=== PATIENT | male | born 1945 | race Caucasian/White ===

== ENCOUNTER → 2022-07-26 15:33 | Outpatient (BNVA) | payer MEDICARE, BC, SELFPAY | PROVIDERS: Family Provider Nurse Practitioner; PCP Nurse Practitioner Family; Visit Provider Nurse Practitioner Family | DX: N39.0 Urinary tract infection, site not specified (principal); N40.0 Benign prostatic hyperplasia without lower urinary tract symptoms | CPT/HCPCS: 81000 ==

== ENCOUNTER 2022-11-10 12:49 | Emergency (ER) | payer MEDICARE, SELFPAY ==
[2022-11-10] VITALS (48 sets, daily range): BP systolic 111–164; BP diastolic 53–69; PULSE 63–78; RESP 14–29; TEMP 36.5–36.9; O2SAT 91–98; BMI 28.2
--- NOTE | 2022-11-10 12:56 | ECG_ITS ---
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 Measurements Intervals [place] Rate: 77 P: 81 WV: 201 QRS: -51 QRSD: 121 T: 52 QT: 369 QTc: 419 Interpretive Statements SINUS RHYTHM WITH FREQUENT VENTRICULAR PREMATURE COMPLEXES LEFT AXIS DEVIATION [QRS AXIS < -30] MODERATE INTRAVENTRICULAR CONDUCTION DELAY [110+ ms QRS DURATION] No previous ECG available for comparison Electronically Signed On 11-10-2022 13:06:39 MACHINE OPERATOR by Venu Saavedra M.D. [id number]
--- NOTE | 2022-11-10 15:59 | XRR_ITS ---
PROCEDURE INFORMATION: Exam: XR Chest Exam date and time: 11/10/2022 4:16 PM Age: 77 years old Clinical indication: Other: Bradycardia; Additional info: Bradycardia, dizzy, abnormal ekg TECHNIQUE: Imaging protocol: Radiologic exam of the chest. Views: 1 view. COMPARISON: No relevant prior studies available. FINDINGS: Lungs: Unremarkable. No consolidation. Pleural spaces: Unremarkable. No pleural effusion. No pneumothorax. Heart/Mediastinum: Unremarkable. No cardiomegaly. Bones/joints: Unremarkable. XR/XR chest 1V portable [id number] IMPRESSION: No acute findings.
--- NOTE | 2022-11-10 16:39 | ED_ITS ---
HPI - Dizziness General: Chief Complaint: Dizziness Stated Complaint: Abnormal EKG Time Seen by Provider: 11/10/22 15:33 History of Present Illness: HPI Narrative: This 77-year-old male was sent from his primary care provider's office for evaluation of bradycardia and dizziness that started earlier today. There is associated weakness. Patient's heart rate was found to be in the 30s. He denies chest pain, shortness of breath, fever or any other pertinent symptoms. Associated symptoms: Denies chest pain, chills or headache(s) Review of Systems Const: Denies: chills, body aches or change in appetite Eyes: Denies: change in vision or eye discharge ENMT: Denies: throat pain, dental pain or nasal discharge Card: Reports: lightheadedness and other (Slow heart rate); Denies: chest pain : Denies: dysuria Musc: Denies: neck pain or back pain Neuro: Denies: headache(s) or weakness in extremities Psych: Denies: depression Raúl/Lymph: Denies: easy bruising All/Imm: Denies: urticaria, tongue swelling or facial swelling PFSH ED PFSH: Medical History BPH (benign prostatic hyperplasia) COVID-19 vaccine series completed Diabetes Essential hypertension Mixed hyperlipidemia Social History Smoking and tobacco status: never smoked Physical Exam Const: COMMON NORMALS: no acute distress, patient oriented x3, no limitations and alert HENMT: COMMON NORMALS: normocephalic HEAD & SCALP: normocephalic Eye: COMMON NORMALS: EOMs intact bilaterally Neck/C-Spine: COMMON NORMALS: full ROM and supple Chest: COMMONS NORMALS: normal inspection of the chest Resp: COMMON NORMALS: normal respiratory effort, No retractions, No use of accessory muscles and clear to auscultation bilaterally AUSCULTATION: clear to auscultation bilaterally Cardio: COMMON NORMALS: No murmurs present (Cardio) OTHER: Bradycardia, irregular rhythm, no murmur. GI: COMMON NORMALS: Normal to inspection, nondistended, normoactive bowel sounds present and non-tender : COMMON NORMALS: Yes no CVA tenderness BLADDER/KIDNEY EXAM: Yes no CVA tenderness Back/Pelvis: COMMON NORMALS: no CVA tenderness and no thoracic nor lumbar tenderness Extremity: GENERAL: Yes normal exam except as noted Neuro: COMMON NORMALS: patient oriented x3 and no focal motor deficits SENSORIUM/ORIENTATION: Yes alert Psych: COMMON NORMALS: mental status grossly normal and cooperative Course Vital Signs: Vital signs: Vital Signs Temperature 97.7 F 11/10/22 14:34 Pulse Rate 75 11/10/22 19:00 Respiratory Rate 19 H 11/10/22 19:00 Blood Pressure 140/58 11/10/22 19:00 Pulse Oximetry 95 11/10/22 19:00 Oxygen Delivery Me thod 11/10/22 14:34 MDM - Dizziness Medical Decision Making Medical decision making: Patient presents to the ED ER to be evaluated for low heart rate that is associated with dizziness. Patient notes that at baseline, he generally has heart rate in the 50s but on this occasion, his heart rate was found to drop to the upper 30s. He was dizzy earlier, that is why he went to his primary care physician's office who in turn advised him to come to the ER. While in the ER, his heart rate spontaneously improved and was up to the 70s and 80s. I discussed extensively with Dr. Montez who noted that if patient is asymptomatic and at his baseline, he can be discharged home with the plan to get an outpatient Holter monitor after which she will be happy to follow-up with him in the office. I discussed this with patient and daughter who verbalized understanding and agree with the plan. Lab Data 11/10/22 16:56 11/10/22 16:56 Radiology Impressions Chest X-Ray 11/10/22 15:59 IMPRESSION: No acute findings. Laboratory Results WBC 7.0 10^3/uL (4.0-10.0) 11/10/22 16:56 RBC 5.04 10^6/uL (4.1-5.3) 11/10/22 16:56 Hgb 14.4 g/dL (11.7-16.6) 11/10/22 16:56 Hct 44.2 % (42.0-52.0) 11/10/22 16:56 MCV 87.7 fl (80-94) 11/10/22 16:56 MCH 28.6 pg (28.0-34.0) 11/10/22 16:56 MCHC 32.6 g/dL (30.0-36.0) 11/10/22 16:56 RDW 13.8 % (12.1-15.1) 11/10/22 16:56 Plt Count 311 10^3/cmm (130-400) 11/10/22 16:56 MPV 10.0 fL (7.4-10.4) 11/10/22 16:56 Neut % (Auto) 62.3 % 11/10/22 16:56 Lymph % (Auto) 23.8 % 11/10/22 16:56 Barry % (Auto) 12.2 % 11/10/22 16:56 Eos % (Auto) 0.7 % 11/10/22 16:56 Baso % (Auto) 0.6 % 11/10/22 16:56 Neut # (Auto) 4.35 10^3/uL (1.8-7.7) 11/10/22 16:56 Lymph # (Auto) 1.7 10^3/uL (0.8-4.8) 11/10/22 16:56 Barry # (Auto) 0.9 10^3/uL (0.2-0.9) 11/10/22 16:56 Eos # (Auto) 0.1 10^3/uL (0.0-0.8) 11/10/22 16:56 Baso # (Auto) 0.0 10^3/uL (0.0-0.1) 11/10/22 16:56 Nucleated RBC % (auto) 0 % 11/10/22 16:56 Nucleated RBCs # 0.0 /100WBC 11/10/22 16:56 Sodium 140 mmol/L (136-145) 11/10/22 16:56 Potassium 5.0 mmol/L (3.5-5.1) 11/10/22 16:56 Chloride 102 mmol/L (98-107) 11/10/22 16:56 Carbon Dioxide 27 mmol/L (22-29) 11/10/22 16:56 Anion Gap 16.0 (5-19) 11/10/22 16:56 BUN 32 mg/dL (8-23) H 11/10/22 16:56 Creatinine 2.2 mg/dL (0.7-1.2) H 11/10/22 16:56 GFR Calculation Not Reportable 11/10/22 16:56 Glucose 163 mg/dL (65-115) H 11/10/22 16:56 Calculated Osmolality 300 mOsm/kg (285-295) H 11/10/22 16:56 Calcium 10.2 mg/dL (8.5-10.5) 11/10/22 16:56 Total Bilirubin 0.4 mg/dL (0.15-1.2) 11/10/22 16:56 AST 16 U/L (0-40) 11/10/22 16:56 ALT 16 U/L (0-41) 11/10/22 16:56 Alkaline Phosphatase 41 U/L (40-130) 11/10/22 16:56 Troponin T Gen 5 ng/L 25 ng/L (0-15) H 11/10/22 16:56 NT-Pro-B Natriuret Pep 1128 pg/mL (0-450) H 11/10/22 16:56 Total Protein 6.9 g/dL (6.6-8.7) 11/10/22 16:56 Albumin 4.3 g/dL (3.5-5.2) 11/10/22 16:56 Globulin 2.6 g/dL (1.3-4.6) 11/10/22 16:56 TSH 4.39 uIU/mL (0.27-4.20) H 11/10/22 16:56 Discharge Plan Discharge Patient Disposition: Home Clinical Impression: Bradycardia, Dizziness Condition: Stable Prescriptions: No Action fenofibrate 160 mg tablet 160 mg PO DAILY amlodipine 10 mg tablet 10 mg PO DAILY glimepiride 4 mg tablet 4 mg PO BID valsartan 80 mg tablet 80 mg PO DAILY fluorouracil 5 % cream 1 applic topical DAILY tamsulosin [Flomax] 0.4 mg capsule 0.8 mg PO DAILY omeprazole 40 mg capsule,delayed release(DR/EC) 40 mg PO DAILY Discharge Orders: Discharge ED (Routine); Ordered 11/10/22 Ordered By: Elton Penny Referrals: Leopoldo Kline, [employer] [facility] [Primary Care Provider] - Patient Instructions: Opioid Safety, Pain Management Activity Restrictions/Additional Instructions: You would benefit from an outpatient Holter monitor. A request has been made for this to be arranged for you. After getting the Holter monitor, you may schedule an appointment as soon as possible to follow-up with the, Dr Montez, robotic maintenance technician as outpatient. Return if you develop any new or worsening symptoms. Coding Level of Care Code ED Career Development Coordinator/Teacher for Miguel Fwd Exam Comprehensive
[2022-11-10 17:15] LABS: Basophils % 0.6 %; Eosinophils # 0.1 10^3/uL (0.0-0.8); Eosinophils % 0.7 %; Hematocrit 44.2 % (42.0-52.0); Hemoglobin 14.4 g/dL (11.7-16.6); Lymphocytes # 1.7 10^3/uL (0.8-4.8); Lymphocytes % 23.8 %; Mean Corpuscular HGB Conc 32.6 g/dL (30.0-36.0); Mean Corpuscular Hemoglobin 28.6 pg (28.0-34.0); Mean Corpuscular Volume 87.7 fl (80-94); Monocytes # 0.9 10^3/uL (0.2-0.9); Monocytes % 12.2 %; Neutrophils # 4.35 10^3/uL (1.8-7.7); Neutrophils % 62.3 %; Nucleated Red Blood Cells % 0 %; Platelet Count 311 10^3/cmm (130-400); Red Blood Count 5.04 10^6/uL (4.1-5.3); Red Cell Distribution Width 13.8 % (12.1-15.1)
[2022-11-10 18:01] LABS: Alanine Aminotransferase 16 U/L (0-41); Albumin Level 4.3 g/dL (3.5-5.2); Alkaline Phosphatase 41 U/L (40-130); Aspartate Amino Transferase 16 U/L (0-40); Blood Urea Nitrogen 32 mg/dL (8-23); Calcium 10.2 mg/dL (8.5-10.5); Carbon Dioxide 27 mmol/L (22-29); Chloride 102 mmol/L (98-107); Globulin 2.6 g/dL (1.3-4.6); Glucose 163 mg/dL (65-115); NT Pro B Type Natriuretic Pept 1128 pg/mL (0-450); Osmolality Calculated 300 mOsm/kg (285-295); Sodium 140 mmol/L (136-145); Thyroid Stimulating Hormone 4.39 uIU/mL (0.27-4.20); Total Bilirubin 0.4 mg/dL (0.15-1.2); Total Protein 6.9 g/dL (6.6-8.7)
[2022-11-10 18:03] LABS: Troponin T (5th) Once 25 ng/L (0-15)
[2022-11-10] MEDS: sodium chloride 0.9% 1,000 ML 999 ML IV (18:35)
--- NOTE | 2022-11-14 13:27 | DCPLANNER ---
Addendum entered by Marguerite Price 12/19/22 07:53: Patient had an appointment scheduled with heart care for a 48 hour halter monitor patient did attend appointment Addendum entered by Marguerite Price 11/15/22 13:36: ed manager received the following message from the front office staff at [facility] regarding follow up appointment: Spoke with patient holter monitor appt on 11/23 @ 9:15. Patient stated he does not want to be seen by cardio just yet until the result's of heart monitor. Patient has a follow up appointment scheduled for , November 23, 2022 at 9:30 for a 48 hour halter monitor - clinic will call patient with appointment information. Original Note: ed manager had message to schedule a follow up appointment for patient with cardiology. ed manager sent patients information to the front office staff at [facility]. Patients information will be printed and reviewed. Clinic will call patient with appointment information. ed manager also had message to schedule an outpatient 48 halter monitor for patient. ed manager faxed a signed order to [facility]. Clinic will call patient with appointment information.
--- NOTE | 2022-12-19 07:53 | DCPLANNER ---
Addendum entered by Marguerite Price 02/20/23 14:21: Patient had a followup appointment scheduled with heart care - patient did attend appointment Original Note: Patient has a follow up appointment scheduled for Sunday, February 19, 2023 at 10:[address] Mcfadden at [facility]. Clinic will call patient with appointment information.
== END 2022-11-10 19:42 | disposition home or self-care (01) ==
PROVIDERS: Emergency Provider Family Medicine; PCP Nurse Practitioner Family
DX: R42 Dizziness and giddiness (principal); R00.1 Bradycardia, unspecified; Z79.84 Long term (current) use of oral hypoglycemic drugs; E11.9 Type 2 diabetes mellitus without complications; I10 Essential (primary) hypertension; E78.2 Mixed hyperlipidemia; Z20.822 Contact with and (suspected) exposure to COVID-19
CPT/HCPCS: 71045; 80053; 83880; 84443; 84484; 85025; 87426; 93005; 96360; 99285; J7030

== ENCOUNTER → 2022-11-23 09:01 | Outpatient (BNVA) | payer MEDICARE, SELFPAY | PROVIDERS: PCP Nurse Practitioner Family; Visit Provider Internal Medicine Cardiovascular Disease | DX: R00.1 Bradycardia, unspecified (principal) | CPT/HCPCS: 93225 ==

== ENCOUNTER → 2023-02-19 10:15 | Outpatient (BNVA) | payer MEDICARE, SELFPAY | PROVIDERS: PCP Nurse Practitioner Family; Visit Provider Internal Medicine Cardiovascular Disease | DX: I49.8 Other specified cardiac arrhythmias (principal); I49.9 Cardiac arrhythmia, unspecified; I10 Essential (primary) hypertension; E11.9 Type 2 diabetes mellitus without complications; E78.5 Hyperlipidemia, unspecified; Z79.84 Long term (current) use of oral hypoglycemic drugs | CPT/HCPCS: 99204 ==

== ENCOUNTER 2023-03-22 09:35 | Outpatient (CLI) | payer MEDICARE, SELFPAY ==
--- NOTE | 2023-03-22 | ECG_ITS ---
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 Interpretive Statements NAME OF STUDY: LEXISCAN SESTAMIBI STRESS TEST INDICATION: [VENTRICULAR ARRYTHMIAS, ] Procedure: At the baseline, the blood pressure was 136/67 mmHg with a heart rate of 54 bpm. The electrocardiogram showed sinus bradycardia, normal axis with normal ST and T's. The Lexiscan was infused over a period of 20 seconds. A total of 0.4 mg of Lexiscan was infused. The stress phase was continued for a total of 5 minutes. Heart rate was at the end of stress phase was 68 bpm and a blood pressure of 129/61 mmHg. The EKG at the peak infusion revealed normal sinus rhythm with no significant ST-T wave changes. Sestamibi was injected 20 seconds after the Lexiscan infusion. Blood pressure at the end of recovery phase was 127/67 mmHg with a heart rate of 67 bpm. Conclusion: 1. Normal EKG response to Lexiscan infusion 2. No Lexiscan induced chest pain or cardiac arrhythmia. 3. Normal blood pressure and heart rate response. 4. Sestamibi/sestamibi perfusion scan pending; see separate report. Electronically Signed On 03-30-2023 15:41:24 CDT by Venu Saavedra M.D. [id number]
[2023-03-22 09:41] VITALS: BMI 29.0
--- NOTE | 2023-03-22 10:00 | NMCV_ITS ---
NM deonna perf SPECT r/s* [id number] Everardo Marcus Age: 77 Gender: M : 1945 Exam Date: 03/22/2023 10:00 Ordering Phys: Yoan Mcfadden MD ([email or web address]) Technologist: ERIN Nelson Exam Location: [facility] Indications: CORONARY ANGIOPLASTY STATUS, DIABETES STRESS TEST Please [facility] for [facility] IMAGE PROTOCOL Rest/Stress 1 Lexiscan Day Radiopharmaceutical Dose (mCi) Administration Site Administered by Rest: Tc-99m 10.4 IV ERIN Newton Sestamibi Stress:Tc-99m 32.4 IV ERIN Newton Sestamihelen Rest: 22-Mar-2023 60 Discovery 630 Stress: 22-Mar-2023 30 Discovery 630 0.4mg Lexiscan. Supine position only as patient was unable to lay prone. SPECT RESULTS Technical Quality: Excellent Raw Data Analysis: Normal Image Corrections: No attenuation or motion correction applied Summed Stress Score: 0 Summed Rest Score: 7 Summed Difference Score: 0 PERFUSION FINDINGS SPECT images demonstrate homogeneous tracer distribution throughout the myocardium. FUNCTIONAL RESULTS (calculated via Gated SPECT) Stress Image LV EF (%): 68 Stress EDV (mL):99 TID: 1.05 Stress ESV (mL):32 FUNCTIONAL FINDINGS: There is normal left ventricular systolic function. IMPRESSIONS 1. Normal myocardial perfusion imaging with no evidence of ischemia 2. LV systolic function is normal Venu Saavedra MD (Electronically Signed) Final Date: 22 March 2023 13:08 S
--- NOTE | 2023-03-22 10:00 | USCV_ITS ---
Marcus Mcgee Age: 77 Gender: M : 1945 Exam Date: 03/22/2023 09:47 Ordering Phys: Yoan Mcfadden MD ([email or web address]) Technologist: Mamadou Shaffer Exam Location[place] [facility] Indication: chest pain BP: 130 / 70 HR: 57 Rhythm: Sinus Technical Quality: Adequate MEASUREMENTS (Male / Female) Normal Values 2D ECHO LV Diastolic Diameter PLAX 4.6 cm 4.2 - 5.9 / 3.9 - 5.3 cm LV Systolic Diameter PLAX 2.5 cm IVS Diastolic Thickness 1.3 cm 0.6 - 1.0 / 0.6 - 0.9 cm IVS Systolic Thickness 2.1 cm LVPW Diastolic Thickness 1.3 cm 0.6 - 1.0 / 0.6 - 0.9 cm LVPW Systolic Thickness 1.9 cm LVOT Diameter 2.4 cm LV Ejection Fraction 2D Teich 77.9 % LV Ejection Fraction MOD 2C 75.9 % LV Ejection Fraction 2C AL 76.5 % LA Diameter 4.9 cm Aorta at Sinotubular Diameter 3.1 cm IVC Diameter 2.5 cm M-MODE Aortic Annulus Diameter 3.8 cm LA Ao Ratio MM 1.4 MV E Point Septal Separation 1.1 cm DOPPLER AV Peak Velocity 112.0 cm/s LVOT Peak Velocity 80.0 cm/s AV Area Cont Eq vti 4.2 cm squared AV Area Cont Eq pk 3.3 cm squared MV Area PHT 5.0 cm squared Mitral E to A Ratio 1.7 MV E' Velocity 50.5 cm/s Mitral E to MV E' Ratio 9.6 Mitral E to LV E' Lateral Ratio 8.9 Mitral E to LV E' Septal Ratio 10.4 TR Peak Velocity 289.3 cm/s TR Peak Gradient 33.5 mmHg TV Peak E Velocity 132.0 cm/s Right Atrial Pressure 3.0 mmHg Pulmonary Artery Systolic Pressu 36.5 mmHg FINDINGS Left Ventricle Normal left ventricular size and systolic function, EF 69 %. Mild left ventricular hypertrophy. Mild hypokinesia of the basal inferior wall segment Right Ventricle The right ventricle is normal in size and function. Right Atrium The right atrium is normal in size. Left Atrium Mildly increased left atrial size. Mitral Valve Mild mitral valve regurgitation. Thickened mitral valve. Aortic Valve Structurally normal aortic valve without significant sclerosis or stenosis. There is no aortic regurgitation. Tricuspid Valve Moderate tricuspid valve regurgitation. Estimated pulmonary artery peak systolic pressure 36 mmHg Pulmonic Valve Pulmonic valve sclerosis. Pulmonic valve not well visualized. Pericardium Normal pericardium without effusion. Aorta Normal ascending aorta dimension. IVC Inferior vena cava not visualized. CONCLUSIONS Normal left ventricular size and systolic function, EF 69 %. Mild left ventricular hypertrophy. Mild hypokinesia of the basal inferior wall segment. Mildly increased left atrial size. Mild mitral valve regurgitation. Thickened mitral valve. Structurally normal aortic valve without significant sclerosis or stenosis. There is no aortic regurgitation. Moderate tricuspid valve regurgitation. Estimated pulmonary artery peak systolic pressure 36 mmHg. There is no pericardial effusion. There are no intracardiac masses. No similar previous studies are available for comparison Dr Yoan Mcfadden MD [facility] (Electronically Signed) Final Date: 04 April 2023 22:34 S
[2023-03-22 11:20] VITALS: BP 127/66; PULSE 68
[2023-03-22] MEDS: regadenoson 0.4 Mg/5 ml Syringe IVP (11:20)
== END 2023-03-22 09:36 | disposition home or self-care (01) ==
LOC: CDL 09:36
PROVIDERS: PCP Nurse Practitioner Family; Visit Provider Internal Medicine Cardiovascular Disease
DX: I47.0 Re-entry ventricular arrhythmia (principal); Z98.61 Coronary angioplasty status; I10 Essential (primary) hypertension; E11.9 Type 2 diabetes mellitus without complications; E78.5 Hyperlipidemia, unspecified; R06.09 Other forms of dyspnea
CPT/HCPCS: 36415; 78452; 93017; 93306; 96374; 99204; A9500; J2785

== ENCOUNTER → 2023-06-08 11:26 | Outpatient (BNVA) | payer MEDICARE, SELFPAY | PROVIDERS: PCP Nurse Practitioner Family; Visit Provider Nurse Practitioner | DX: R50.9 Fever, unspecified (principal) | CPT/HCPCS: 87400; 87426 ==

== ENCOUNTER → 2024-07-18 14:47 | Outpatient (BNVA) | payer MEDICARE, SELFPAY | PROVIDERS: PCP Nurse Practitioner Family; Visit Provider Nurse Practitioner Family | DX: J06.9 Acute upper respiratory infection, unspecified (principal) | CPT/HCPCS: 87426 ==